=== PATIENT | male | born 1960 | race Caucasian/White ===

== ENCOUNTER 2017-07-16 17:46 | Emergency (ER) | payer MEDICARE, MEDICAID, SELFPAY ==
[2017-07-16 17:55] VITALS: BP 122/66; PULSE 108; RESP 18; TEMP 36.6; O2SAT 96; BMI 31.1
[2017-07-16 17:56] VITALS: BMI 31.1
--- NOTE | 2017-07-16 17:57 | XR_ITS ---
XR chest 2V HISTORY: ITS.REASON: chest pain ORDERING PHYSICIAN: Leela Nieves MD PATIENT AGE: 56 years COMPARISON: 03/11/2016 FINDINGS: The cardiomediastinal silhouette and pulmonary vascularity are within normal limits. The lungs are clear without infiltrates, suspicious nodules, or pleural effusions. Degenerative change thoracic spine. IMPRESSION: No change with no acute finding
[2017-07-16 18:06] LABS: Basophils # 0.1 K/mm3 (0-0.2); Basophils % 0.7 % (0.1-2.0); Eosinophils # 0.4 K/mm3 (0.0-0.4); Eosinophils % 3.3 % (0.1-12.0); Hematocrit 39.5 % (42.0-52.0); Hemoglobin 13.6 g/dL (14.1-18.0); Lymphocytes # 1.9 K/mm3 (0.7-4.5); Lymphocytes % 17.1 K/mm3 (10-50); Mean Corpuscular HGB Conc 34.5 g/dL (31.8-35.4); Mean Corpuscular Hemoglobin 30.4 pg (27.0-31.2); Mean Platelet Volume 7.5 fl (7.4-10.4); Monocytes # 0.6 K/mm3 (0.1-1.0); Monocytes % 5.2 % (1.7-9.3); Neutrophils # 8.1 K/mm3 (1.8-7.8); Neutrophils % 73.8 % (37.0-80.0); Platelet Count 283 K/mm3 (142-424); Red Blood Count 4.49 M/mm3 (4.60-6.20); Red Cell Distribution Width 13.4 % (11.5-17.5)
--- NOTE | 2017-07-16 18:11 | HMH.EDGENADL ---
ED Disposition Clinical Impression: Hypotension Qualifiers: Hypotension type: idiopathic hypotension Qualified Code(s): I95.0 - Idiopathic hypotension Disposition: Home, Self-Care Condition on Discharge: Fair Instructions: DI for Muscle Weakness Additional Instructions: Drink more fluids, take more salt in diet and discuss use of Isorbide with Brainer...return to the ED with any worsening symptoms Referrals: Tali Kulkarni APRN [Primary Care Provider] - Time of Disposition: 19:34 - Critical Care Critical Care Time: No Attestation: On , the high probability of a clinically significant, sudden or life threatening deterioration of the following system(s) required my full and direct attention, intervention and personal management. The time I documented below is in addition to time spent performing reported procedures but includes the following listed in this critical care notation. Medical Decision Making - Medical Records Medical records reviewed: Yes: I reviewed the patient's medical records. Vital Signs: 07/16/17 17:55 Temperature 97.8 F Temperature Source Oral Pulse Rate [Right Brachial] 108 H Respiratory Rate 18 Blood Pressure [Right Arm] 122/66 Blood Pressure Mean [Right Arm] 84 Blood Pressure Source [Right Arm] Automatic Cuff Blood Pressure Position [Right Arm] Sitting 02 Sat by Pulse Oximetry 96 Oxygen Delivery Method Room Air Nasal Cannula - Lab Data Lab results reviewed: Yes: I reviewed the patient's lab results. Lab Results 07/16/17 18:00: WBC 11.0 H, RBC 4.49 L, Hgb 13.6 L, Hct 39.5 L, MCV 88.0, MCH 30.4, MCHC 34.5, RDW 13.4, Plt Count 283, MPV 7.5, Neut % (Auto) 73.8, Lymph % (Auto) 17.1, [place] % (Auto) 5.2, Eos % (Auto) 3.3, Baso % (Auto) 0.7, Neut # (Auto) 8.1 H, Lymph # (Auto) 1.9, [place] # (Auto) 0.6, Eos # (Auto) 0.4, Baso # (Auto) 0.1 07/16/17 18:00: Sodium 139, Potassium 4.0, Chloride 104, Carbon Dioxide 26, Anion Gap 13.0, BUN 33 H, Creatinine 1.54 H, Estimated Creat Clear 79, Estimated GFR 47 L, Est GFR ( Amer) 57 L, Glucose 118 H, Calcium 8.8, Total Bilirubin 0.3, AST 33, ALT 58, Alkaline Phosphatase 103, Total Creatine Kinase 120, CK-MB (CK-2) 0.8, CK-MB (CK-2) Rel Index 0.7, Troponin I < 0.02, Total Protein 7.6, Albumin 3.4, Globulin 4.2 H, Albumin/Globulin Ratio 0.8 L Result diagrams: 07/16/17 18:00 07/16/17 18:00 Orders (Tests/Meds): ORDERS Category Date Time Status XR chest 2V Stat Exams 07/16/17 17:57 Taken 12-lead EKG Request [ECG Request by /Henrik] Stat Y 07/16/17 17:57 Ordered - Radiology Data #1 Image(s): Chest Image Reviewed: Yes I reviewed the patient's radiology results, Yes I reviewed the patient's radiology image Preliminary Findings: Normal/NAD - Abdoulaye Inquiry Pt receiving controlled substance: No Abdoulaye was queried for this patient: No General Adult HPI - General Chief complaint: Weakness Stated complaint: low blood pressure Time Seen by Provider: 07/16/17 18:11 Mode of Arrival: Family Vehicle Limitations: No Limitations Description of Symptoms (Recalled from ER Triage Doc. by RN): pt presents worried about low bp and feeling shaky - History of Present Illness HPI narrative: Pt comes to the ED with complains of light headedness and chest pain all day since he took a new medicine called Isosorbide prescribed to him by Rambo Barker. The chest pain is a sharp pain and he does not have nausea or diaphoresis with it Onset (ago): day(s) Location: chest Radiation: non-radiation Severity: moderate Severity scale (1-10): 5 - Related Data Allergies Allergy/AdvReac Type Severity Reaction Status Date / Time clindamycin [CLINDAMYCIN] Allergy Unknown Unverified 05/15/17 15:09 Penicillins [PENICILLINS] Allergy Unknown Unverified 05/15/17 15:09 [facility] History I have reviewed the patient's past medical history: Yes Medical History: Reports:: Cancer (bladder) - Social History Educational Level: Completed [employer]
--- NOTE | 2017-07-16 18:19 | ED_ITS ---
ED Disposition Clinical Impression: Hypotension Qualifiers: Hypotension type: idiopathic hypotension Qualified Code(s): I95.0 - Idiopathic hypotension Disposition: Home, Self-Care Condition on Discharge: Fair Instructions: DI for Muscle Weakness Additional Instructions: Drink more fluids, take more salt in diet and discuss use of Isorbide with Maintenance And Operations Supervisor...return to the ED with any worsening symptoms Referrals: Tali Kulkarni APRN [Primary Care Provider] - Time of Disposition: 19:34 - Critical Care Critical Care Time: No Attestation: On , the high probability of a clinically significant, sudden or life threatening deterioration of the following system(s) required my full and direct attention, intervention and personal management. The time I documented below is in addition to time spent performing reported procedures but includes the following listed in this critical care notation. Medical Decision Making - Medical Records Medical records reviewed: Yes: I reviewed the patient's medical records. Vital Signs: 07/16/17 17:55 Temperature 97.8 F Temperature Source Oral Pulse Rate [Right Brachial] 108 H Respiratory Rate 18 Blood Pressure [Right Arm] 122/66 Blood Pressure Mean [Right Arm] 84 Blood Pressure Source [Right Arm] Automatic Cuff Blood Pressure Position [Right Arm] Sitting 02 Sat by Pulse Oximetry 96 Oxygen Delivery Method Room Air Nasal Cannula - Lab Data Lab results reviewed: Yes: I reviewed the patient's lab results. Lab Results 07/16/17 18:00: WBC 11.0 H, RBC 4.49 L, Hgb 13.6 L, Hct 39.5 L, MCV 88.0, MCH 30.4, MCHC 34.5, RDW 13.4, Plt Count 283, MPV 7.5, Neut % (Auto) 73.8, Lymph % ( Auto) 17.1, [place] % (Auto) 5.2, Eos % (Auto) 3.3, Baso % (Auto) 0.7, Neut # (Auto ) 8.1 H, Lymph # (Auto) 1.9, [place] # (Auto) 0.6, Eos # (Auto) 0.4, Baso # (Auto) 0.1 07/16/17 18:00: Sodium 139, Potassium 4.0, Chloride 104, Carbon Dioxide 26, Anion Gap 13.0, BUN 33 H, Creatinine 1.54 H, Estimated Creat Clear 79, Estimated GFR 47 L, Est GFR ( Amer) 57 L, Glucose 118 H, Calcium 8.8, Total Bilirubin 0.3, AST 33, ALT 58, Alkaline Phosphatase 103, Total Creatine Kinase 120, CK-MB (CK-2) 0.8, CK-MB (CK-2) Rel Index 0.7, Troponin I < 0.02, Total Protein 7.6, Albumin 3.4, Globulin 4.2 H, Albumin/Globulin Ratio 0.8 L Result diagrams: 07/16/17 18:00 07/16/17 18:00 Orders (Tests/Meds): ORDERS Category Date Time Status XR chest 2V Stat Exams 07/16/17 17:57 Taken 12-lead EKG Request [ECG Request by /Henrik] Stat Y 07/16/17 17:57 Ordered - Radiology Data #1 Image(s): Chest Image Reviewed: Yes I reviewed the patient's radiology results, Yes I reviewed the patient's radiology image Preliminary Findings: Normal/NAD - Abdoulaye Inquiry Pt receiving controlled substance: No Abdoulaye was queried for this patient: No General Adult HPI - General Chief complaint: Weakness Stated complaint: low blood pressure Time Seen by Provider: 07/16/17 18:11 Mode of Arrival: Family Vehicle Limitations: No Limitations Description of Symptoms (Recalled from ER Triage Doc. by RN): pt presents worried about low bp and feeling shaky - History of Present Illness HPI narrative: Pt comes to the ED with complains of light headedness and chest pain all day since he took a new medicine called Isosorbide prescribed to him by Rambo Barker. The chest pain is a sharp pain and he does not have n
[2017-07-16 18:36] LABS: Alanine Aminotransferase 58 U/L (12-78); Albumin Level 3.4 gm/dL (3.4-5.0); Albumin/Globulin Ratio 0.8 (1.1-1.8); Alkaline Phosphatase 103 U/L (46-116); Aspartate Amino Transferase 33 U/L (15-37); Bilirubin,Total 0.3 mg/dL (0.2-1.0); Blood Urea Nitrogen 33 mg/dL (7-18); CKMB Relative Index 0.7 U/L (0-4.0); Calcium 8.8 mg/dL (8.5-10.1); Carbon Dioxide 26 mmol/L (21.0-32.0); Chloride 104 mmol/L (98-107); Creatine Kinase 120 U/L (39-308); Creatine Kinase MB 0.8 mg/ml (0.0-3.6); Creatinine Clearance Estimated 79 mL/min (0-300); Creatinine,Serum 1.54 mg/dL (0.70-1.30); Estimated Glomerular Filt Rate 47 ml/min (>60); GFR (African American) 57 ML/MIN (>60); Globulin 4.2 gm/dl (1.3-3.2); Glucose 118 mg/dL (74-106); Sodium 139 mmol/L (136-145); Total Protein,Serum 7.6 gm/dL (6.4-8.2); Troponin I < 0.02 ng/ml (0.00-0.06)
[2017-07-16 19:39] VITALS: BP 110/70; PULSE 101; RESP 16; TEMP 36.6; O2SAT 96
== END 2017-07-16 19:45 | disposition home or self-care (01) ==
PROVIDERS: Emergency Provider General Practice; Family Provider Internal Medicine Adolescent Medicine; PCP Nurse Practitioner Family
DX: I95.0 Idiopathic hypotension (principal); Z88.0 Allergy status to penicillin
CPT/HCPCS: 71046; 80053; 82550; 82553; 84484; 85025; 93005; 99282

== ENCOUNTER 2017-08-16 10:34 | Day surgery (SDC) | payer MEDICARE, MEDICAID, SELFPAY ==
[2017-08-16] VITALS (9 sets, daily range): BP systolic 96–143; BP diastolic 65–91; PULSE 60–85; RESP 18–20; TEMP 36.4–36.7; O2SAT 93–99; BMI 32.6
--- NOTE | 2017-08-16 11:41 | P.PN_ITS ---
[facility] Anesthesia Checklist - Patient Identification Patient Identification: Arm Band - Structural Data Admitted From: Home Planned Operative Procedure/s: egd/colonoscopy Consent for Planned Operative Procedure(s) Verified: Yes Verified Documents: Surgical Consent, History and Physical - NPO Status Verified Time NPO: 00:00 - Additional verifications Anesthesia Reactions: No - Airway Assessment C-Spine Mobility Assessed: Yes (mp2) TMJ Mobility Assessed: Yes Dentition: Poor Dentition - Neurological Assessment Level of Consciousness: Awake, Alert - Anesthesia Plan Anesthesia Risk discussed: Yes Anesthesia Plan: Verified ASA Class: III Anesthesia Type: MAC [facility] Anesthesia HX I have reviewed the patient's past medical history: Yes Medical History: Reports:: Coronary Artery Disease, Gastroesophageal Reflux Disease(GERD), Hiatal Hernia, Hypertension, Lung Disease (copd), Myocardial Infarction Denies:: Diabetes Mellitus Type 1, Diabetes Mellitus Type 2, Internal Pacemaker, Seizures Other Medical History: Reports: Other (heart attack) Other Surgeries: Yes: Colonoscopy, Coronary Stent, EGD, Hernia Repair. No: Pacemaker *Family Hx:: Cancer, Hypertension, Diabetes, Heart Attack
--- NOTE | 2017-08-16 12:50 | P.PCN_ITS ---
- Procedure: Date: 08/16/17 Procedure Performed:: Esophagogastroduodenoscopy with biopsy Colonoscopy with polypectomy Indications:: This is a 56-year-old gentleman with a history of complex gastritis and ulcerative duodenitis with intestinal metaplasia noted on gastric biopsies one year. He also had a cluster of hyperplastic-appearing polyps around 17 cm in the colon. Pathology confirmed adenomatous changes and changes consistent with possible serrated adenoma. Plans for repeat colonoscopy in 3-6 months were made ; however, the patient did not report for follow-up. He now returns secondary to running out of stomach medicines . Performing Provider:: Surendra Dela Cruz MD Referring Provider:: Amalia Kulkarni APRN Sedation:: Monitored anesthesia care Procedure:: Informed consent was obtained, the patient was taken to the endoscopy suite. Monitored anesthesia care ensued after he was transferred to the left lateral disposition. The gastroscope was advanced. Mild inflammation was noted within the stomach. Dramatic improvement with regard to inflammatory response noted. No ulcerative changes were seen. The pylorus was intubated. The duodenal mucosa had minimal inflammatory changes. A biopsy antrum was obtained and the gastroscope was carefully removed. Digital rectal exam revealed no significant abnormality. The colonoscope was placed in position. The entire colon was evaluated. Bowel preparation was moderate to poor with large volume irrigation and suctioning used to somewhat improve visualization. Severe colonic spasticity and lack of relaxation made visualization difficult. The patient did have a 1 cm sessile distal transverse colon polyp and an adjacent polyp that were excised by way of snare. A cluster around 35 cm was also noted. Although these did appear hyperplastic, the majority of these were removed secondary to history of serrated adenoma. A similar cluster around 20 cm was also excised by way of snare. Due to the shear number of polyps, complete removal at one setting was not able to be accomplished. The colonoscope was carefully removed and the patient was transferred to recovery in stable condition. Findings:: Dramatic improvement with regard to gastric and duodenal inflammation Bowel preparation moderate to poor Severe spasticity and lack of relaxation Large complex sessile polyp of the distal transverse colon and adjacent polyp Complex cluster of hyperplastic-appearing polyps at 35 cm Complex cluster of hyperplastic-appearing polyps at 20 cm Specimens:: Antral biopsy 1cm complex sessile polyp of the distal transverse colon and adjacent polyp Complex cluster of hyperplastic-appearing polyps at 35 cm Complex cluster of hyperplastic-appearing polyps at 20 cm Recommendations:: Repeat colonoscopy is pending pathology but will likely be between 3-6 months secondary to limited visualization and history of clusters of polyps with pathology-proven adenomatous changes. Complications:: No immediate Estimated blood obtained (mL): 1
--- NOTE | 2017-08-16 13:56 | XR_ITS ---
XR acute abdomen series HISTORY: Abdominal pain following colonoscopy and biopsy ITS.REASON: pain s/p colonoscopy ORDERING PHYSICIAN: Surendra Dela Cruz MD PATIENT AGE: 56 years COMPARISON: 07/16/2017 FINDINGS: Frontal view of the chest shows no acute finding. Upright and supine views of the abdomen show a nonspecific bowel gas pattern. No intestinal obstruction or free air is evident. No acute bony anomalies. Abdominal wall tacks are present in the midabdomen. IMPRESSION: No acute finding
--- NOTE | 2017-08-16 15:05 | PC.NURSE ---
after going to bathroom, patient reports minor pain relief.
== END 2017-08-16 14:30 | disposition home or self-care (01) ==
LOC: OUTP 10:36
PROVIDERS: Family Provider Internal Medicine Adolescent Medicine; PCP Internal Medicine Adolescent Medicine; Visit Provider Surgery
PROC: 0DJ08ZZ Inspection of Upper Intestinal Tract, Via Natural or Artificial Opening Endoscopic (ICD-10-PCS; CPT 43235; principal; 2017-08-16 11:30)
DX: K58.9 Irritable bowel syndrome, unspecified (principal); K63.5 Polyp of colon; Z87.19 Personal history of other diseases of the digestive system
CPT/HCPCS: 43239; 45385; 74021; 88305; J2704

== ENCOUNTER → 2018-04-17 11:29 | Outpatient (CLI) | payer MEDICARE, MEDICAID, SELFPAY ==
[2018-04-17 12:54] LABS: Troponin I < 0.02 ng/ml (0.00-0.06)
[2018-04-17 12:59] LABS: Alanine Aminotransferase 39 U/L (12-78); Albumin Level 3.4 gm/dL (3.4-5.0); Albumin/Globulin Ratio 0.7 (1.1-1.8); Alkaline Phosphatase 111 U/L (46-116); Anion Gap 12.5 mEq/L (5-15); Aspartate Amino Transferase 21 U/L (15-37); Bilirubin,Total 0.5 mg/dL (0.2-1.0); Blood Urea Nitrogen 20 mg/dL (7-18); Calcium 8.6 mg/dL (8.5-10.1); Carbon Dioxide 28 mmol/L (21.0-32.0); Chloride 103 mmol/L (98-107); Creatinine,Serum 0.92 mg/dL (0.70-1.30); Estimated Glomerular Filt Rate 85 ml/min (>60); GFR (African American) 103 ML/MIN (>60); Globulin 4.8 gm/dl (1.3-3.2); Glucose 84 mg/dL (74-106); Potassium 4.5 mmoL/L (3.5-5.1); Sodium 139 mmol/L (136-145); Thyroid Stimulating Hormone 3.51 uIU/ml (0.358-3.740); Total Protein,Serum 8.2 gm/dL (6.4-8.2)
[2018-04-17 14:38] LABS: Basophils # 0.1 K/mm3 (0-0.2); Basophils % 0.8 % (0.1-2.0); Eosinophils # 0.2 K/mm3 (0.0-0.4); Eosinophils % 2.1 % (0.1-12.0); Hematocrit 44.2 % (42.0-52.0); Hemoglobin 13.9 g/dL (14.1-18.0); Lymphocytes # 1.7 K/mm3 (0.7-4.5); Lymphocytes % 20.6 % (10-50); Mean Corpuscular HGB Conc 31.6 g/dL (31.8-35.4); Mean Corpuscular Hemoglobin 29.4 pg (27.0-31.2); Mean Platelet Volume 7.5 fl (7.4-10.4); Monocytes # 0.5 K/mm3 (0.1-1.0); Monocytes % 5.8 % (1.7-9.3); Neutrophils # 5.8 K/mm3 (1.8-7.8); Neutrophils % 70.7 % (37.0-80.0); Platelet Count 307 K/mm3 (142-424); Red Blood Count 4.75 M/mm3 (4.60-6.20); Red Cell Distribution Width 14.1 % (11.5-17.5); White Blood Count 8.2 K/mm3 (4.8-10.8)
== END ==
PROVIDERS: Visit Provider Physician Assistant
DX: I25.10 Atherosclerotic heart disease of native coronary artery without angina pectoris (principal); R07.9 Chest pain, unspecified; Z79.899 Other long term (current) drug therapy; R42 Dizziness and giddiness
CPT/HCPCS: 36415; 80053; 84443; 84484; 85025; 93005

== ENCOUNTER → 2018-04-24 10:15 | Outpatient (CLI) | payer MEDICARE, MEDICAID, SELFPAY ==
--- NOTE | 2018-04-24 10:19 | CI_ITS ---
Cerebrovascular Exam Indications: 780.4 Dizziness and giddiness. IMPRESSIONS 1. The bilateral vertebral arteries are patent with normal antegrade flow. 2. Study suggests less than 20% stenosis involving the right internal carotid artery. 3. Study suggests 20-49% stenosis involving the left internal carotid artery. No change from the study of 04-Aug-2014. History: Memory loss and left-sided weakness. Risk factors: Current tobacco use. Hypertension. Carotid duplex study. Complete study and Doppler flow study including spectral analysis, color and soliz scale imaging. Height: Height: 182.9cm. Height: 72in. Weight: Weight: 112.9kg. Weight: 248.5lb. Body mass index: BMI: 33.8kg/m^2. Body surface area: BSA: 2.43m^2. Location: Vascular laboratory. Patient status: Outpatient. Tables: Arterial flow: + +--------+--------+ Location V sys V ed + +--------+--------+ Right CCA - proximal 158cm/s 29.9cm/s + +--------+--------+ Right CCA - distal 98.2cm/s 19.6cm/s + +--------+--------+ Right ECA 82.5cm/s -------- + +--------+--------+ Right ICA - proximal 67.7cm/s 24.9cm/s + +--------+--------+ Right ICA - mid 78.7cm/s 35.1cm/s + +--------+--------+ Right ICA - distal 66.8cm/s 28.6cm/s + +--------+--------+ Right vertebral 38.1cm/s -------- + +--------+--------+ Left CCA - proximal 93.9cm/s 22.5cm/s + +--------+--------+ Left CCA - distal 80.5cm/s 22.6cm/s + +--------+--------+ Left ECA 96.5cm/s -------- + +--------+--------+ Left ICA - proximal 103cm/s 45.2cm/s + +--------+--------+ Left ICA - mid 109cm/s 38cm/s + +--------+--------+ Left ICA - distal 105cm/s 50.7cm/s + +--------+--------+ Left vertebral 51cm/s -------- + +--------+--------+ Velocity ratios: + + + + + + Right, V sys Right, V ed Left, V sys Left, V ed + + + + + + Max ICA/dist CCA 0.8 1.79 1.35 2.24 + + + + + + (Report amended ) Electronically signed by: Theodore Jacobson [id number]
== END ==
PROVIDERS: PCP Internal Medicine Adolescent Medicine; Visit Provider Physician Assistant
DX: R42 Dizziness and giddiness (principal); I25.10 Atherosclerotic heart disease of native coronary artery without angina pectoris
CPT/HCPCS: 93880

== ENCOUNTER → 2018-06-10 09:11 | Outpatient (CLI) | payer MEDICARE, MEDICAID, SELFPAY ==
[2018-06-10 09:35] LABS: Basophils # 0.1 K/mm3 (0-0.2); Basophils % 0.7 % (0.1-2.0); Eosinophils # 0.3 K/mm3 (0.0-0.4); Hemoglobin 14.1 g/dL (14.1-18.0); Lymphocytes # 1.8 K/mm3 (0.7-4.5); Lymphocytes % 20.1 % (10-50); Mean Corpuscular HGB Conc 32.1 g/dL (31.8-35.4); Mean Corpuscular Hemoglobin 29.2 pg (27.0-31.2); Mean Corpuscular Volume 90.8 fl (80-94); Mean Platelet Volume 6.9 fl (7.4-10.4); Monocytes # 0.5 K/mm3 (0.1-1.0); Monocytes % 6.2 % (1.7-9.3); Neutrophils # 6.1 K/mm3 (1.8-7.8); Neutrophils % 69.9 % (37.0-80.0); Platelet Count 280 K/mm3 (142-424); Red Blood Count 4.85 M/mm3 (4.60-6.20); Red Cell Distribution Width 13.8 % (11.5-17.5); White Blood Count 8.7 K/mm3 (4.8-10.8)
[2018-06-10 10:47] LABS: Alanine Aminotransferase 36 U/L (12-78); Albumin Level 3.4 gm/dL (3.4-5.0); Albumin/Globulin Ratio 0.8 (1.1-1.8); Alkaline Phosphatase 123 U/L (46-116); Anion Gap 13.2 mEq/L (5-15); Aspartate Amino Transferase 24 U/L (15-37); Bilirubin,Total 0.6 mg/dL (0.2-1.0); Blood Urea Nitrogen 17 mg/dL (7-18); Calcium 8.9 mg/dL (8.5-10.1); Carbon Dioxide 28 mmol/L (21.0-32.0); Chloride 105 mmol/L (98-107); Cholesterol 121 mg/dL (140-200); Estimated Glomerular Filt Rate 69 ml/min (>60); Free Thyroxine Index 3.5 ug/dL (5.93-13.13); GFR (African American) 83 ML/MIN (>60); Globulin 4.2 gm/dl (1.3-3.2); Glucose 95 mg/dL (74-106); HDL Cholesterol 40 mg/dL (27-67); LDL Cholesterol 63 mg/dL (0-130); Potassium 4.2 mmoL/L (3.5-5.1); Sodium 142 mmol/L (136-145); T4 (Thyroxine) 10.7 ug/dl (4.7-13.3); Thyroid Stimulating Hormone 2.98 uIU/ml (0.358-3.740); Total Protein,Serum 7.6 gm/dL (6.4-8.2); Triglycerides 90 mg/dL (30-200); Triiodothryronine (T3) Uptake 33 % (31-39); VLDL Cholesterol 18 mg/dL (0-40)
[2018-06-12 13:04] LABS: Vitamin B12 467 pg/mL (232-1245)
[2018-06-12 13:06] LABS: Vitamin D 25 Hydroxy 20.7 ng/mL (30.0-100.0)
== END ==
PROVIDERS: Visit Provider Internal Medicine Adolescent Medicine
DX: I25.10 Atherosclerotic heart disease of native coronary artery without angina pectoris; R42 Dizziness and giddiness; Z87.891 Personal history of nicotine dependence; Z79.899 Other long term (current) drug therapy
CPT/HCPCS: 36415; 80053; 80061; 82607; 82652; 84436; 84443; 84479; 85025

== ENCOUNTER → 2018-06-13 14:05 | Outpatient (CLI) | payer MEDICARE, MEDICAID, SELFPAY ==
--- NOTE | 2018-06-13 14:12 | CT_ITS ---
CT lung screening EXAM: CT LUNG LOW DOSE WO CONTRAST HISTORY: 30 pack-year smoking history asymptomatic lung cancer ITS.REASON: TOBACCO USE ORDERING PHYSICIAN: Brandyn Tristan MD PATIENT AGE: 57 years COMPARISON: 11/07/2015 TECHNIQUE: The exam was performed on a GE Light Speed [address] scanner using 2.90 mGy CTDI. A low dose helical CT CHEST was performed on a multi-detector scanner. All CT scans at the facility use one or more dose reduction, viz: automated exposure control, ma/kV adjustment per patient size (including targeted exams where dose is matched to indication, i.e. head), or iterative reconstruction technique. The LDCT was performed in a facility that meets the criteria for the screening program. Data regarding this exam was submitted to ACR which is an approved registry. The order for this exam indicates that it came as a result of a lung cancer screening counseling shard decision-making visit that included all the elements required of such a visit including smoking cessation. The radiologist interpreting this exam meets the [facility] criteria for the LDCT lung cancer screening program. The exam is reported using the Lung-RADS classification scale and reported to the ACR registry. NOTE: This study was performed for the specific purposes of lung cancer screening and is not an alternative to diagnostic chest CT. RADIATION DOSE: CTDI vol(CT dose Index-volume) = 2.90mG DLP (Dose Length Product) = 113.47 mGcm FINDINGS: Centrilobular and paraseptal emphysema with pulmonary fibrosis 8 mm noncalcified nodule right upper lobe posteriorly axial image #25 unchanged 5 mm nodule right upper lobe anterolaterally image #42 not readily apparent previously. There are calcified nodes in the mediastinum and padmini. Coronary artery calcification and/or stent noted. IMPRESSION: 1. Lung RADS Category: 3, probably benign. There is an 8 mm right upper lobe nodule previously measuring approximate 6 mm. The difference could be related to the slice orientation. There is a new 5 mm nodule in right upper lobe. 6 month follow-up suggested 2. Other findings: Centrilobular and paraseptal emphysema with fibrosis RECOMMENDATIONS: 6 month LDCT follow-up
== END ==
PROVIDERS: PCP Internal Medicine Adolescent Medicine; Visit Provider Internal Medicine Adolescent Medicine
DX: Z12.2 Encounter for screening for malignant neoplasm of respiratory organs (principal); Z87.891 Personal history of nicotine dependence

== ENCOUNTER → 2018-06-25 14:49 | Outpatient (CLI) | payer MEDICARE, MEDICAID, SELFPAY | PROVIDERS: PCP Internal Medicine Adolescent Medicine; Visit Provider Specialist | DX: G47.19 Other hypersomnia (principal); G47.30 Sleep apnea, unspecified; H93.19 Tinnitus, unspecified ear; R06.83 Snoring; R42 Dizziness and giddiness; R51 Headache | CPT/HCPCS: G0399 ==

== ENCOUNTER → 2019-07-09 11:45 | Outpatient (CLI) | payer MEDICARE, OTHER, SELFPAY ==
[2019-07-09 12:24] LABS: Basophils # 0.1 K/mm3 (0-0.2); Basophils % 0.8 % (0.1-2.0); Eosinophils # 0.2 K/mm3 (0.0-0.4); Eosinophils % 1.9 % (0.1-12.0); Hematocrit 41.7 % (42.0-52.0); Hemoglobin 13.3 g/dL (14.1-18.0); Lymphocytes # 1.4 K/mm3 (0.7-4.5); Lymphocytes % 17.9 % (10-50); Mean Corpuscular Hemoglobin 28.4 pg (27.0-31.2); Mean Corpuscular Volume 88.7 fl (80-94); Monocytes # 0.4 K/mm3 (0.1-1.0); Monocytes % 5.2 % (1.7-9.3); Neutrophils # 5.9 K/mm3 (1.8-7.8); Neutrophils % 74.2 % (37.0-80.0); Platelet Count 365 K/mm3 (142-424); Red Cell Distribution Width 13.8 % (11.5-17.5); White Blood Count 7.9 K/mm3 (4.8-10.8)
[2019-07-09 13:50] LABS: Alanine Aminotransferase 50 U/L (21-72); Albumin Level 3.4 g/dL (3.4-5.0); Albumin/Globulin Ratio 0.8 (1.1-1.8); Alkaline Phosphatase 117 U/L (46-116); Anion Gap 11.8 mEq/L (5-15); Aspartate Amino Transferase 33 U/L (15-37); Bilirubin,Total 0.4 mg/dL (0.2-1.0); Blood Urea Nitrogen 15 mg/dL (7-18); Calcium 8.8 mg/dL (8.5-10.1); Carbon Dioxide 28 mmol/L (21.0-32.0); Chloride 107 mmol/L (98-107); Chol/HDL Ratio 3.4 (1-3.5); Cholesterol 142 mg/dL (140-200); Creatinine,Serum 0.95 mg/dL (0.70-1.30); Estimated Glomerular Filt Rate 81 ml/min (>60); GFR (African American) 99 ML/MIN (>60); Globulin 4.2 gm/dl (1.3-3.2); Glucose 90 mg/dL (74-106); HDL Cholesterol 42 mg/dL (27-67); LDL Cholesterol 82 mg/dL (0-130); Potassium 4.8 mmoL/L (3.5-5.1); Sodium 142 mmol/L (137-145); Total Protein,Serum 7.6 g/dL (6.4-8.2); Triglycerides 90 mg/dL (30-200); VLDL Cholesterol 18 mg/dL (0-40)
== END ==
PROVIDERS: Visit Provider Internal Medicine Adolescent Medicine
DX: I25.10 Atherosclerotic heart disease of native coronary artery without angina pectoris (principal)
CPT/HCPCS: 36415; 80053; 80061; 85025

== ENCOUNTER → 2019-07-30 14:59 | Outpatient (CLI) | payer MEDICARE, OTHER, SELFPAY ==
--- NOTE | 2019-07-30 15:08 | CT_ITS ---
PROCEDURE: CT LUNG SCREENING CLINICAL INDICATION: CURRRENT TOBACCO USE Thirty pack-year smoking history, asymptomatic for lung cancer COMPARISON: ABDPELW/O CT ABD PELVIS W/O CONTRAST from 03/11/[address] lung screening from 06/13/2018 TECHNIQUE: The exam was performed on a GE Light Speed [address] scanner using 2.90 mGy CTDI. A low dose helical CT CHEST was performed on a multi-detector scanner. All CT scans at the facility use one or more dose reduction, viz: automated exposure control, ma/kV adjustment per patient size (including targeted exams where dose is matched to indication, i.e. head), or iterative reconstruction technique. The LDCT was performed in a facility that meets the criteria for the screening program. Data regarding this exam was submitted to ACR which is an approved registry. The order for this exam indicates that it came as a result of a lung cancer screening counseling shard decision-making visit that included all the elements required of such a visit including smoking cessation. The radiologist interpreting this exam meets the CMS criteria for the LDCT lung cancer screening program. The exam is reported using the Lung-RADS classification scale and reported to the ACR registry. NOTE: This study was performed for the specific purposes of lung cancer screening and is not an alternative to diagnostic chest CT. RADIATION DOSE: CTDI vol(CT dose Index-volume) = 2.90mG DLP (Dose Length Product) = 107.86 mGcm FINDINGS: COPD with interstitial changes. 3 mm noncalcified nodule right upper lobe anteriorly image 47 series 4. There are scattered areas of scarring. There is a new 8 mm parenchymal opacity in the right apex possibly due to an area of scarring but not readily apparent on the previous exam. OTHER FINDINGS: Coronary artery calcification. There is lobular soft tissue density projecting off the lateral aspect of the left kidney incompletely imaged. Left renal cyst is noted in this region on previous abdomen CT of 03/11/2016. IMPRESSION: Lung rads category 3 probably benign finding regarding new 8 mm parenchymal opacity in the right apex. Recommend six-month diagnostic CT follow-up without and with contrast Dictated by: Theodore Jacobson MD 08/02/2019 10:20 Electronically signed by Theodore Jacobson MD in [place] 08/02/2019 10:20
== END ==
PROVIDERS: PCP Internal Medicine Adolescent Medicine; Visit Provider Internal Medicine Adolescent Medicine
DX: Z87.891 Personal history of nicotine dependence (principal); Z12.2 Encounter for screening for malignant neoplasm of respiratory organs

== ENCOUNTER → 2020-02-25 10:06 | Outpatient (CLI) | payer MEDICARE, OTHER, SELFPAY ==
--- NOTE | 2020-02-25 10:10 | CT_ITS ---
PROCEDURE: CT CHEST WO/W CON CLINCAL INDICATION: LUNG NODULE Follow-up lung nodule COMPARISON: CT ABDPELW/O CT ABD PELVIS W/O CONTRAST from 05/09/2015 CT CTAC CTA-CHEST from 11/07/[address] LUNG SCREENING from 07/30/2019 TECHNIQUE: IV Contrast: 75ml Optiray 350 Axial images obtained with sagittal and coronal reformats. All CT scans at the facility use one or more dose reduction, viz: automated exposure control, ma/kV adjustment per patient size (including targeted exams where dose is matched to indication, i.e. head), or iterative reconstruction technique. FINDINGS: HEART AND MEDIASTINAL STRUCTURES: There is scattered small mediastinal lymph nodes present. The largest node is in the precarinal region on the right measuring 1.6 cm not significantly changed. Coronary artery calcifications are present. LUNGS AND PLEURAL SPACES: There is scarring in the lung apices greater on the right. There is an 8 mm right apical nodule. This may be related to some scarring. The overall size is not significantly changed but the nodule appears slightly more prominent possibly due to the technique.. There are other scattered parenchymal and subpleural opacities. These are better delineated on today's exam probably related to the technique there are changes of COPD with centrilobular emphysema and scattered areas of scarring/fibrosis. There is a 7 mm noncalcified nodule in the right upper lobe medially adjacent to the posterior mediastinum probably unchanged. This is best seen on coronal image number 59 No effusions. No evidence of aortic aneurysm or dissection. No evidence of central pulmonary embolus. BONY STRUCTURES: No acute bony abnormalities apparent. UPPER ABDOMEN: There is a 13 mm hypodensity in the right hepatic lobe posteriorly benign-appearing and not significantly changed from a abdomen CT of 05/09/2015. 7.5 cm left renal cyst is present. 15 mm left-sided hepatic cyst noted. ADDITIONAL FINDINGS: No other significant abnormalities. IMPRESSION: COPD with centrilobular and paraseptal emphysema with some scattered areas of fibrosis. There are numerous small bilateral pulmonary nodules. Some of these appears slightly more prominent compared to the previous exam however, this may be related to technique. There was motion artifact on that exam and it was performed as an LDCT. Probably overall not significantly changed. Suggest continued six-month follow-up diagnostic chest CT without and with contrast for confirmation. Dictated by: Theodore Jacobson MD 03/06/2020 08:24 Theodore Jacobson MD in [place] 03/06/2020 08:24
[2020-02-25 10:49] LABS: Blood Urea Nitrogen 16 mg/dl (9-20); Estimated Glomerular Filt Rate 76 ml/min (>60); GFR (African American) 93 ML/MIN (>60)
== END ==
PROVIDERS: PCP Internal Medicine Adolescent Medicine; Visit Provider Internal Medicine Adolescent Medicine
DX: R91.1 Solitary pulmonary nodule (principal)
CPT/HCPCS: 36415; 71270; 82565; 84520; Q9967

== ENCOUNTER → 2020-09-06 12:30 | Outpatient (CLI) | payer MEDICARE, OTHER, SELFPAY ==
[2020-09-06 12:51] LABS: Basophils # 0.1 K/mm3 (0-0.2); Basophils % 0.7 % (0.1-2.0); Eosinophils # 0.2 K/mm3 (0.0-0.4); Eosinophils % 2.4 % (0.1-12.0); Hemoglobin 12.8 g/dL (14.1-18.0); Lymphocytes # 1.9 K/mm3 (0.7-4.5); Lymphocytes % 20.1 % (10-50); Mean Corpuscular HGB Conc 32.9 g/dL (31.8-35.4); Mean Corpuscular Hemoglobin 28.2 pg (27.0-31.2); Mean Corpuscular Volume 85.7 fl (80-94); Mean Platelet Volume 7.8 fl (7.4-10.4); Monocytes # 0.5 K/mm3 (0.1-1.0); Monocytes % 5.6 % (1.7-9.3); Neutrophils # 6.6 K/mm3 (1.8-7.8); Neutrophils % 71.2 % (37.0-80.0); Platelet Count 271 K/mm3 (142-424); Red Blood Count 4.55 M/mm3 (4.60-6.20); Red Cell Distribution Width 14.8 % (11.5-17.5); White Blood Count 9.2 K/mm3 (4.8-10.8)
[2020-09-06 13:29] LABS: Chloride 107 mmol/L (98-107); Potassium 4.7 mmoL/L (3.5-5.1); Sodium 140 mmol/L (136-145)
[2020-09-06 13:31] LABS: Alanine Aminotransferase 24 U/L (12-78); Alkaline Phosphatase 121 U/L (38-126); Aspartate Amino Transferase 33 U/L (17-59); Bilirubin,Total 0.7 mg/dl (0.2-1.3); Blood Urea Nitrogen 15 mg/dl (9-20); Estimated Glomerular Filt Rate 76 ml/min (>60); GFR (African American) 93 ML/MIN (>60)
[2020-09-06 13:32] LABS: Albumin/Globulin Ratio 1.2 (1.1-1.8); Anion Gap 7.7 mEq/L (5-15); Calcium 9.1 mg/dl (8.4-10.2); Carbon Dioxide 30 mmol/L (22.0-30.0); Chol/HDL Ratio 2.9 (1-3.5); Cholesterol 112 mg/dl (140-200); Globulin 3.4 g/dL (1.3-3.2); Glucose 88 mg/dl (74-100); HDL Cholesterol 39 mg/dl (40-60); Total Protein,Serum 7.4 g/dl (6.3-8.2); Triglycerides 54 mg/dl (30-150); VLDL Cholesterol 11 mg/dL (0-40)
[2020-09-06 13:41] LABS: NT Pro Brain Natriuretic Pep. 165 pg/mL (0-125)
[2020-09-06 13:43] LABS: Direct LDL Cholesterol 54.49 mg/dL (100-129)
== END ==
PROVIDERS: Visit Provider Internal Medicine Adolescent Medicine
DX: I25.10 Atherosclerotic heart disease of native coronary artery without angina pectoris (principal); I50.9 Heart failure, unspecified
CPT/HCPCS: 36415; 80053; 80061; 83880; 85025

== ENCOUNTER → 2020-09-08 07:51 | Outpatient (CLI) | payer MEDICARE, OTHER, SELFPAY ==
--- NOTE | 2020-09-08 | CA_ITS ---
APPROVED REPORT EXAM: Comprehensive 2D, Doppler, and color-flow Echocardiogram [employer] Architect: Celi Garay CRT Ht: 6 ft 0 in Wt: 257lbs BSA: 2.37 BP: 115/64 mmHg Indications: CAD, Hyperlipidemia, Hypertension/HDD, GERD, Bladder CA, Stents, smoker 2D Dimensions LVOT 2.04 cm (M/F) 1.5-2.5 LA Volume 60.20 mL LA Volume Index 25.40 mL/m2 (M/F) 16-34 M-Mode Dimensions RVDd 3.76 cm (0.9-2.6) LA Diam 3.97 cm (1.9-4.0) LVDd 4.52 cm (3.5-5.7) Ao Diam 4.85 cm (2.0-3.7) LVDs 3.30 cm (3.5-5.7) IVSd 1.78 cm (0.6-1.1) PWd 0.95 cm (0.6-1.1) EF (Teich) 52.80% FS 27.00% EDV (Teich) 93.40 mL TAPSE 2.26 (<1.7) ESV (Teich) 44.10 mL LV Diastology MED E' 6.30 (< 7 cm/sec) MED A' 10.70 cm/s LAT E' 8.10 (<10 cm/sec) LAT A' 12.90 cm/s Aortic Valve AI PHT 331.00 ms AO Peak GR. 4.80 mmHg Pulmonary Valve PV Peak Velocity 65.00 (50-150 cm/s) Tricuspid Valve TR P. Velocity 228.00 cm/s RAP Estimate 10.00 mmHg RVSP 30.90 mmHg Left Ventricle Left atrium is mildly enlarged, left ventricle is normal size, mild concentric left ventricular hypertrophy, visually estimated ejection fraction 55% with no obvious regional wall motion abnormality, grade 1 diastolic dysfunction seen without tissue Doppler evidence of raise left atrial pressure. Right Ventricle Right atrium and right ventricle are mildly enlarged with normal contractility. Aortic Valve Aortic valve is minimally thickened and fibrosed. There is no aortic stenosis or aortic insufficiency. Mitral Valve Mitral valve grossly normal, there is trace mitral regurgitation. Tricuspid Valve Tricuspid valve grossly normal, there is trace tricuspid regurgitation, tricuspid regurgitation jet velocity is inadequate for calculation of the right ventricular systolic pressure. Pulmonic Valve Pulmonic valve is poorly visualized. Great Vessels Aortic root is normal size. Pericardium No significant pericardial effusion noted. Conclusion 1. Mildly enlarged left atrium, normal left ventricular size, mild concentric left ventricular hypertrophy, visually estimated ejection fraction 55% with no regional wall motion abnormality, grade 1 diastolic dysfunction seen without tissue Doppler evidence of raise left atrial pressure. 2. Mildly enlarged right ventricle with normal contractility. 3. Trace mitral and tricuspid regurgitation. 4. No significant pericardial effusion noted. Inferior vena cava is not well visualized. Electronically signed by : Olegario Stovall, 09/09/2020 10:28:11
== END ==
PROVIDERS: PCP Internal Medicine Adolescent Medicine; Visit Provider Internal Medicine Adolescent Medicine
DX: I50.9 Heart failure, unspecified (principal); I25.10 Atherosclerotic heart disease of native coronary artery without angina pectoris
CPT/HCPCS: 93306

== ENCOUNTER → 2020-10-05 17:06 | Outpatient (CLI) | payer MEDICARE, OTHER, SELFPAY ==
[2020-10-05 17:48] LABS: Basophils # 0.1 K/mm3 (0-0.2); Basophils % 0.9 % (0.1-2.0); Eosinophils # 0.2 K/mm3 (0.0-0.4); Eosinophils % 2.7 % (0.1-12.0); Hemoglobin 13.1 g/dL (14.1-18.0); Lymphocytes % 24.2 % (10-50); Mean Corpuscular HGB Conc 31.9 g/dL (31.8-35.4); Mean Corpuscular Hemoglobin 28.5 pg (27.0-31.2); Mean Corpuscular Volume 89.1 fl (80-94); Mean Platelet Volume 7.4 fl (7.4-10.4); Monocytes # 0.5 K/mm3 (0.1-1.0); Monocytes % 5.6 % (1.7-9.3); Neutrophils # 5.5 K/mm3 (1.8-7.8); Neutrophils % 66.7 % (37.0-80.0); Platelet Count 255 K/mm3 (142-424); Red Blood Count 4.61 M/mm3 (4.60-6.20); Red Cell Distribution Width 14.6 % (11.5-17.5); White Blood Count 8.3 K/mm3 (4.8-10.8)
[2020-10-05 18:22] LABS: Chloride 101 mmol/L (98-107)
[2020-10-05 18:23] LABS: Potassium 4.8 mmoL/L (3.5-5.1); Sodium 137 mmol/L (136-145)
[2020-10-05 18:26] LABS: Anion Gap 9.8 mEq/L (5-15); Blood Urea Nitrogen 21 mg/dl (9-20); Calcium 9.4 mg/dl (8.4-10.2); Carbon Dioxide 31 mmol/L (22.0-30.0); Estimated Glomerular Filt Rate 62 ml/min (>60); GFR (African American) 75 ML/MIN (>60); Glucose 114 mg/dl (74-100)
== END ==
PROVIDERS: Visit Provider Nurse Practitioner Family
DX: R06.00 Dyspnea, unspecified; R94.31 Abnormal electrocardiogram [ECG] [EKG]; R60.9 Edema, unspecified; I10 Essential (primary) hypertension; I25.118 Atherosclerotic heart disease of native coronary artery with other forms of angina pectoris; I27.20 Pulmonary hypertension, unspecified; J44.9 Chronic obstructive pulmonary disease, unspecified; E78.5 Hyperlipidemia, unspecified; F17.200 Nicotine dependence, unspecified, uncomplicated; Z01.818 Encounter for other preprocedural examination; Z11.52 Encounter for screening for COVID-19
CPT/HCPCS: 36415; 80048; 85025; U0003

== ENCOUNTER 2020-10-07 08:38 | Day surgery (SDC) | payer MEDICARE, OTHER, SELFPAY ==
[2020-10-07] VITALS (13 sets, daily range): BP systolic 85–162; BP diastolic 56–83; PULSE 56–72; RESP 16–18; TEMP 36.8; O2SAT 87–95; BMI 38.0
--- NOTE | 2020-10-07 07:24 | IR_ITS ---
APPROVED REPORT Patient Location: Outpatient Site Leader: LANI Perez RT (R) PROCEDURES Right heart catheterization Left heart catheterization Left ventriculogram Selective coronary angiogram INDICATION Previous inferior myocardial infarction, Biventricular congestive heart failure, Angina pectoris class III-IV Informed consent was obtained prior to the procedure. COMPLICATIONS None Estimated Blood Loss: less than 10ml TECHNIQUE One percent lidocaine was used to anesthetize the right anterior aspect of the right wrist. The right radial artery was accessed via the Seldinger technique and a 6 [place] hydrophilic sheath was placed in the right radial artery. Following this one percent lidocaine was used to anesthetize the right anterior aspect of the right neck. The right internal jugular vein was accessed via the Seldinger technique and a 7 [place] sheath was placed in the right internal jugular vein. Following this an arterial cocktail was administered using 5000U heparin, 2.5 mg verapamil, 1mg Lidocaine and 800mcg nitroglycerin into the right radial sheath. A trap catheter was used to perform left heart catheterization left ventriculogram and selective coronary angiography while a Newnan-Quirino catheter was used to perform right heart catheterization. Saturations were obtained in the pulmonary artery and right atrium. At the end of the procedure the arterial sheath was removed good hemostasis was achieved using Traclet band. Patient was transferred to the postop holding area in stable condition for venous sheath removal. ANGIOGRAPHIC RESULTS The left main artery Normal The left anterior descending artery Has a stent in the proximal segment which is widely patent with no angiographic evidence of in-stent restenosis however significantly undersized by at least 1.5 millimeters in diameter. Nevertheless there still appears to be appropriate flow down the LAD The circumflex artery Is a nondominant vessel. The second obtuse marginal artery is occluded and fills scantly via left to left collaterals The right coronary artery Is a dominant vessel and has a stent in the mid segment which is widely patent free of in-stent restenosis however the stent is significantly undersized by at least 1.5 to 2 mm in diameter The [place] ventriculogram reveals Normal 65% The left ventricular end-diastolic pressure 30 mmHg Right atrial pressure 15 mmHg Pulmonary artery pressure 40/25 mmHg Pulmonary occlusion pressure 25 mmHg Right atrial saturation 74% Pulmonary artery saturation 74% IMPRESSION Patent stents in the proximal LAD and mid dominant right coronary artery which do not have in-stent restenosis however both stents are significantly undersized Moderate pulmonary hypertension secondary to left-sided diastolic dysfunction Normal ejection fraction PLAN 1. At this point. Both stents in the proximal LAD and mid dominant right coronary are undersized however have no evidence of in-stent restenosis. Given patient has diastolic dysfunction I believe that should be treated prior to proceeding with further ischemic work-up. In the setting of elevated LVEDP/decompensated heart failure and FFR test is not accurate and cannot appropriately assess ischemic heart disease. Patient should be treated for diastolic dysfunction with diuretics. If his symptoms significantly improve and the angina resolves then the presumed diagnosis would be diastolic dysfunction. If after diuresis his symptoms persist, he should be brought back to the [facility] in a euvolemic state and then have the LAD and right coronary artery subjected to FFR interrogation. Given the occluded circumflex artery and undersized LAD and
[2020-10-07 14:18] LABS: CATHL Arterial O2 SAT 74.1 % (90-100); CATHL Venous O2 SAT 74.5 % (75-80)
== END 2020-10-07 13:31 | disposition home or self-care (01) ==
LOC: CATHLAB 08:41
PROVIDERS: PCP Internal Medicine Adolescent Medicine; Visit Provider Internal Medicine
DX: I27.20 Pulmonary hypertension, unspecified (principal); E78.5 Hyperlipidemia, unspecified; I25.118 Atherosclerotic heart disease of native coronary artery with other forms of angina pectoris; I50.82 Biventricular heart failure; I11.0 Hypertensive heart disease with heart failure; J44.9 Chronic obstructive pulmonary disease, unspecified; R06.00 Dyspnea, unspecified; R60.9 Edema, unspecified; R94.31 Abnormal electrocardiogram [ECG] [EKG]; F17.210 Nicotine dependence, cigarettes, uncomplicated; I25.2 Old myocardial infarction
CPT/HCPCS: 82810; 93460; 99152; C1725; C1769; C1894; J1644; Q9967

== ENCOUNTER → 2020-10-28 10:32 | Outpatient (CLI) | payer MEDICARE, OTHER, SELFPAY ==
[2020-10-28 11:17] LABS: Anion Gap 9.5 mEq/L (5-15); Blood Urea Nitrogen 21 mg/dl (9-20); Calcium 9.3 mg/dl (8.4-10.2); Carbon Dioxide 33 mmol/L (22.0-30.0); Chloride 103 mmol/L (98-107); Estimated Glomerular Filt Rate 57 ml/min (>60); GFR (African American) 68 ML/MIN (>60); Glucose 113 mg/dl (74-100); Potassium 4.5 mmoL/L (3.5-5.1); Sodium 141 mmol/L (136-145)
== END ==
PROVIDERS: PCP Internal Medicine Adolescent Medicine; Visit Provider Nurse Practitioner Family
DX: G47.33 Obstructive sleep apnea (adult) (pediatric) (principal); R06.00 Dyspnea, unspecified; R40.0 Somnolence
CPT/HCPCS: 36415; 80048; G0399

== ENCOUNTER → 2021-04-27 07:54 | Outpatient (CLI) | payer MEDICARE, OTHER, SELFPAY | PROVIDERS: Visit Provider Urology | DX: C67.9 Malignant neoplasm of bladder, unspecified (principal); Z01.812 Encounter for preprocedural laboratory examination; Z20.822 Contact with and (suspected) exposure to COVID-19 | CPT/HCPCS: C9803; U0003; U0005 ==

== ENCOUNTER 2021-04-29 07:19 | Day surgery (SDC) | payer MEDICARE, OTHER, SELFPAY ==
[2021-04-25 12:49] VITALS: BMI 35.2
[2021-04-29] VITALS (9 sets, daily range): BP systolic 121–155; BP diastolic 71–89; PULSE 67–81; RESP 16–20; TEMP 36.1–36.7; O2SAT 91–98
[2021-04-29 08:08] LABS: Chloride 101 mmol/L (98-107); Potassium 3.5 mmoL/L (3.5-5.1); Sodium 140 mmol/L (136-145)
[2021-04-29 08:11] LABS: Basophils # 0.1 K/mm3 (0-0.2); Basophils % 0.8 % (0.1-2.0); Blood Urea Nitrogen 23 mg/dl (9-20); Creatinine Clearance Estimated 119 mL/min (50-200); Eosinophils # 0.2 K/mm3 (0.0-0.4); Estimated Glomerular Filt Rate 68 ml/min (>60); GFR (African American) 83 ML/MIN (>60); Hematocrit 43.1 % (42.0-52.0); Hemoglobin 14.4 g/dL (14.1-18.0); Lymphocytes # 1.7 K/mm3 (0.7-4.5); Lymphocytes % 18.2 % (10-50); Mean Corpuscular HGB Conc 33.4 g/dL (31.8-35.4); Mean Corpuscular Hemoglobin 30.2 pg (27.0-31.2); Mean Corpuscular Volume 90.3 fl (80-94); Mean Platelet Volume 8.2 fl (7.4-10.4); Monocytes # 0.5 K/mm3 (0.1-1.0); Monocytes % 5.1 % (1.7-9.3); Neutrophils % 73.8 % (37.0-80.0); Platelet Count 331 K/mm3 (142-424); Red Blood Count 4.77 M/mm3 (4.60-6.20); Red Cell Distribution Width 14.4 % (11.5-17.5); White Blood Count 9.4 K/mm3 (4.8-10.8)
[2021-04-29 08:12] LABS: Anion Gap 13.5 mEq/L (5-15); Calcium 9.6 mg/dl (8.4-10.2); Carbon Dioxide 29 mmol/L (22.0-30.0); Glucose 103 mg/dl (74-100)
[2021-04-29 09:35] LABS: Prostate Specific Ag, Diagnost 1.83 ng/ml (0.0-4.0)
--- NOTE | 2021-04-29 10:24 | P.PN_ITS ---
[facility] Anesthesia Checklist - Patient Identification Patient Identification: Arm Band - Structural Data Admitted From: Home Planned Operative Procedure/s: Cystoscopy, Excision of Scrotal Lesion Consent for Planned Operative Procedure(s) Verified: Yes Verified Documents: Surgical Consent, History and Physical - NPO Status Verified Time NPO: 00:00 - Additional verifications Anesthesia Reactions: No Hx Blood Transfusions: No Blood Transfusion Reaction: No - Airway Assessment C-Spine Mobility Assessed: Yes (mp2) TMJ Mobility Assessed: Yes Dentition: Poor Dentition - Neurological Assessment Level of Consciousness: Awake, Alert - Anesthesia Plan Anesthesia Risk discussed: Yes Anesthesia Plan: Verified ASA Class: III Anesthesia Type: General [facility] History I have reviewed the patient's past medical history: Yes Medical History: Reports:: Asthma, Cancer, Congestive Heart Failure, Chronic Obstructive Pulmonary Disease (COPD), Coronary Artery Disease, Gastroesophageal Reflux Disease(GERD), Hiatal Hernia, Hyperlipidemia, Hypertension, Lung Disease, Myocardial Infarction Denies:: Diabetes Mellitus Type 1, Diabetes Mellitus Type 2, Internal Pacemaker, MRSA, Seizures *Have you ever received a pneumonia vaccine?: Yes *Have you received a flu vaccine this season?: Yes Other Medical History: Reports: Other. Denies: Blood Transfusion Reaction Anesthesia experience/problems:: nac Other Surgeries: Yes: Cancer Surgery, Cardiac Catheterization, Colonoscopy, Coronary Stent, EGD, Hernia Repair, Other. No: Pacemaker Amputation: No Fractures: Yes - *Social History Last grade of school completed: High school graduate Smoking Status: Current every day smoker Tobacco Type: cigarettes # Packs/Day (cigarettes): 1 #Yrs smoked (if former smoker): 45 Alcohol Intake: never Alcohol Intake Frequency:: other Substance Use Type: denies use *Occupational Status:: disabled Housing: house Household Members: spouse *Travel in the last 8 weeks: None Family Hx:: Cancer, Hypertension, Diabetes, Heart Attack
--- NOTE | 2021-04-29 10:53 | HMH.ANESI ---
[facility] Anesthesia Record Part I Intake, IV Amount: 900 Estimated blood loss (mL): 0 Urine output (mL): 0 Blood Pressure: 155/89 SaO2: 91 Pulse Rate: 76 Respiratory Rate: 16 Temperature: 98 F Patient is:: Drowsy, Stable Stable to PACU at:: 10:20
--- NOTE | 2021-04-29 10:54 | HMH.ANESII ---
[facility] Anesthesia Record Part II Discharge Time: 10:50 Destination: Surgical Day Care (OP Surgery) PACU nurse assessment reviewed?: Yes Patient Condition:: Good Anesthesia Complications:: None Swallowing reflex intact?: Yes Cyanosis?: No Blood Pressure: 147/86 Pulse Rate: 69 Temperature: 98 F Mental Status: Alert & Oriented Pain level:: 0 Nausea and/or vomitting:: None Intake, IV Amount: 0
--- NOTE | 2021-04-29 13:43 | P.OP_ITS ---
Date of procedure: 04/29/21 Pre-op Diagnosis:: History of bladder cancer, right scrotal wall skin lesion Post-op Diagnosis:: Same Procedure performed:: Cystoscopy, excision of 2 cm skin lesion Surgeon:: Gee Gray MD [employer] OPERATOR:: Aron Morales Anesthesia: LMA Estimated blood loss (mL): 2 Clinical Note:: 60-year-old white male with history of bladder cancer presents after a 5-year absence for surveillance cystoscopy. He also has a right-sided scrotal wall lesion that he would like removed. Operative findings:: Bladder showed no evidence of recurrent bladder cancer. Does have a large friable median lobe of the prostate. 2 cm scrotal lesion was removed without problem. Operative note:: Patient taken to the operating room after informed consent was obtained. Placed on the operating table in the supine position and general anesthesia administered. Preoperative antibiotics and sequential compression devices placed. He was then placed into the dorsal lithotomy position and prepped and draped in the standard surgical fashion. The 22 cystoscope passed into the urethra in the past into the bladder without difficulty. The bladder was examined in a systematic fashion with the 30 and 70 degree lenses. There is no evidence of recurrent bladder tumors. Small trabeculation was present and he had a enlarged median lobe that was friable. Ureteral orifices in their normal anatomic position with clear efflux of urine. Scope removed and we turned our attention to the right scrotal wall lesion. Kept the patient in the dorsolithotomy position and local anesthetic was placed into the skin underneath the lesion. It had a very narrow neck attaching it to the skin. Elliptical incision was made at the base of the lesion and tenotomy scissors were used to excise the lesion. Hemostasis achieved and the skin edges were undermined. Two 3-0 chromic's were placed in a simple interrupted fashion. Compression dressing applied. Patient tolerated procedure well. Lesion was sent off to pathology. Condition: stable Disposition: PACU Specimens:: Scrotal wall lesion Complications:: None
== END 2021-04-29 11:25 | disposition home or self-care (01) ==
LOC: OR 07:20
PROVIDERS: PCP Internal Medicine Adolescent Medicine; Visit Provider Urology
PROC: 0TJB8ZZ Inspection of Bladder, Via Natural or Artificial Opening Endoscopic (ICD-10-PCS; CPT 52000; principal; 2021-04-29 09:30)
DX: Z85.51 Personal history of malignant neoplasm of bladder (principal); R31.9 Hematuria, unspecified; N50.89 Other specified disorders of the male genital organs; J45.909 Unspecified asthma, uncomplicated; J44.9 Chronic obstructive pulmonary disease, unspecified; I25.10 Atherosclerotic heart disease of native coronary artery without angina pectoris; K21.9 Gastro-esophageal reflux disease without esophagitis; E78.5 Hyperlipidemia, unspecified; I10 Essential (primary) hypertension; I25.2 Old myocardial infarction; Z72.0 Tobacco use; I50.9 Heart failure, unspecified; Z85.9 Personal history of malignant neoplasm, unspecified
CPT/HCPCS: 52000; 80048; 84153; 85025; 88305; 96374; J2405

== ENCOUNTER 2021-05-16 22:51 | Observation (INO) | payer MEDICARE, OTHER, SELFPAY ==
--- NOTE | 2021-05-16 22:50 | ECG_ITS ---
APPROVED REPORT Exam: Resting ECG HR:82 bpm ECG Measurements Heart Rate 82 AXES ND 158 P 36 QRSd 84 QRS 25 QT 376 T 46 QTc 439 Conclusion Normal sinus rhythm Normal ECG Electronically signed by : Brandyn Tristan MD 05/17/2021 21:03:39
[2021-05-16 22:51] VITALS: BP 171/95; PULSE 84; RESP 16; TEMP 37; O2SAT 95; BMI 35.2
--- NOTE | 2021-05-16 22:58 | XR_ITS ---
PROCEDURE INFORMATION: Exam: XR Chest Exam date and time: 05/16/2021 10:58 PM Age: 60 years old Clinical indication: Sternal or substernal pain; Prior surgery; Patient HX: States chest pain starting around 2230. HX copd, cardiac stents, smoker & HTN TECHNIQUE: Imaging protocol: XR of the chest. Views: 1 view. COMPARISON: CT CHEST WO/W CON 02/25/2020 10:57 AM FINDINGS: Lungs: Subtle interstitial haziness could reflect interstitial pneumonia. No consolidation. Pleural spaces: Unremarkable. No pleural effusion. No pneumothorax. Heart/Mediastinum: Unremarkable. No cardiomegaly. Bones/joints: Unremarkable. IMPRESSION: Subtle interstitial haziness could reflect interstitial pneumonia.
[2021-05-16 23:00] VITALS: PULSE 77; RESP 21; O2SAT 97
[2021-05-16 23:01] VITALS: BP 111/68; PULSE 76; RESP 20; O2SAT 97
[2021-05-16 23:07] LABS: Basophils # 0.1 K/mm3 (0-0.2); Basophils % 0.7 % (0.1-2.0); Eosinophils # 0.2 K/mm3 (0.0-0.4); Eosinophils % 1.7 % (0.1-12.0); Hematocrit 42.5 % (42.0-52.0); Hemoglobin 14.1 g/dL (14.1-18.0); Lymphocytes % 19.3 % (10-50); Mean Corpuscular HGB Conc 33.1 g/dL (31.8-35.4); Mean Corpuscular Hemoglobin 30.1 pg (27.0-31.2); Mean Corpuscular Volume 90.8 fl (80-94); Mean Platelet Volume 7.5 fl (7.4-10.4); Monocytes # 0.6 K/mm3 (0.1-1.0); Monocytes % 6.1 % (1.7-9.3); Neutrophils # 7.5 K/mm3 (1.8-7.8); Neutrophils % 72.3 % (37.0-80.0); Platelet Count 312 K/mm3 (142-424); Red Blood Count 4.69 M/mm3 (4.60-6.20); White Blood Count 10.4 K/mm3 (4.8-10.8)
[2021-05-16 23:15] VITALS: PULSE 79; RESP 12; O2SAT 96
--- NOTE | 2021-05-16 23:17 | HMH.EDCP ---
ED Disposition Clinical Impression: Unstable angina pectoris, Tobacco dependence syndrome, Elevated left ventricular end-diastolic pressure (LVEDP), Obesity (BMI 30-39.9) CAD (coronary artery disease) Qualifiers: Coronary Disease-Associated Artery/Lesion type: [place] artery [place] vs. transplanted heart: [place] heart Associated angina: with unstable angina Qualified Code(s): I25.110 - Atherosclerotic heart disease of [place] coronary artery with unstable angina pectoris Disposition: Admitted As Inpatient Condition on Discharge: Good Referrals: Brandyn Tristan MD [Primary Care Provider] - - Critical Care Critical Care Time: No Attestation: On 05/16/21, the high probability of a clinically significant, sudden or life threatening deterioration of the following system(s) required my full and direct attention, intervention and personal management. The time I documented below is in addition to time spent performing reported procedures but includes the following listed in this critical care notation. Medical Decision Making - Medical Records Medical records reviewed: Yes: I reviewed the patient's medical records. - Abdoulaye Inquiry Pt receiving controlled substance: No Vital Signs: 05/16/21 22:51 Temperature 98.6 F Temperature Source Oral Pulse Rate [Right] 84 Respiratory Rate 16 Blood Pressure [Right Arm] 171/95 H Blood Pressure Mean [Right Arm] 120 Blood Pressure Source [Right Arm] Automatic Cuff Blood Pressure Position [Right Arm] Sitting 02 Sat by Pulse Oximetry 95 Oxygen Delivery Method Room Air - Lab Data Lab results reviewed: Yes: I reviewed the patient's lab results. Lab Results 05/16/21 22:55: WBC 10.4, RBC 4.69, Hgb 14.1, Hct 42.5, MCV 90.8, MCH 30.1, MCHC 33.1, RDW 14.0, Plt Count 312, MPV 7.5, Neut % (Auto) 72.3, Lymph % (Auto) 19.3, Reynolds % (Auto) 6.1, Eos % (Auto) 1.7, Baso % (Auto) 0.7, Neut # (Auto) 7.5, Lymph # (Auto) 2.0, Reynolds # (Auto) 0.6, Eos # (Auto) 0.2, Baso # (Auto) 0.1 05/16/21 22:55: Sodium 140, Potassium 4.0, Chloride 101, Carbon Dioxide 33 H, Anion Gap 10.0, BUN 22 H, Creatinine 1.20, Estimated Creat Clear 109, Estimated GFR 62, Est GFR ( Amer) 75, Glucose 113 H, Calcium 9.8, Troponin I < 0.01 Result diagrams: 05/16/21 22:55 05/16/21 22:55 Orders (Tests/Meds): ED MEDICATIONS Discontinued Medications Generic Name Dose Route Start Last Admin Trade Name Jhonny PRN Reason Stop Dose Admin Aspirin 243 mg 05/16/21 22:58 05/16/21 23:02 Aspirin 81mg Chewable Tablet PO 05/16/21 22:59 243 mg ONCE ONE Administration Nitroglycerin 1 gm 05/16/21 22:58 05/16/21 23:02 Nitroglycerin 1 Gm Ointment TD 05/16/21 22:59 1 gm ONCE ONE Administration ORDERS Category Date Time Status XR chest portable Stat Exams 05/16/21 22:58 Taken Troponin I Q3H Lab 05/17/21 02:00 Ordered Troponin I Q3H Lab 05/17/21 05:00 Ordered - Radiology Data #1 Image(s): Chest Image Reviewed: Yes I reviewed the patient's radiology image Preliminary Findings: Abnormal (cm) - ECG Data Tracing #1 Normal Sinus Rhythm: Yes Ischemic changes: non-specific ST-T wave changes - Physician Consults Physician Consulted: mayda Reason -: Admission Medical Decision Narrative: has unstable angina with abn prev heart cath Chest Pain HPI - General Chief Complaint: Chest Pain Stated Complaint: chest pain Time Seen by Provider: 05/16/21 23:00 Mode of Arrival: Ambulatory Source of Information: Patient, Medical Record Limitations: No Limitations Description of Symptoms (Recalled from ER Triage Doc. by RN): PT advises he started having sharp chest pains approx. 30-45 mins [employer] and had left hand tingling. Denies pain radiating anywhere else. Advises he took a nitro approx 15 mins [employer] and had some relief - History of Present Illness HPI narrative: episodes of ant chest pain about every 2-3 days but longer episode tonight partially relieved with ntg - had abn cath in
[2021-05-16 23:30] VITALS: BP 120/76; PULSE 70; RESP 19; O2SAT 97
[2021-05-16 23:45] VITALS: PULSE 67; RESP 15; O2SAT 95
[2021-05-16 23:50] LABS: Blood Urea Nitrogen 22 mg/dl (9-20); Calcium 9.8 mg/dl (8.4-10.2); Carbon Dioxide 33 mmol/L (22.0-30.0); Chloride 101 mmol/L (98-107); Creatinine Clearance Estimated 109 mL/min (50-200); Estimated Glomerular Filt Rate 62 ml/min (>60); GFR (African American) 75 ML/MIN (>60); Glucose 113 mg/dl (74-100); Sodium 140 mmol/L (136-145)
[2021-05-17] VITALS (28 sets, daily range): BP systolic 90–139; BP diastolic 62–88; PULSE 65–87; RESP 13–21; TEMP 36.4–37.2; O2SAT 92–98; BMI 35.1
--- NOTE | 2021-05-17 | IR_ITS ---
APPROVED REPORT Patient Location: Inpatient PROCEDURES Left heart catheterization Left ventriculogram Selective coronary angiogram FFR to the dominant right coronary FFR to the LAD INDICATION Coronary artery disease, Recalcitrant angina pectoris, Informed consent was obtained prior to the procedure. COMPLICATIONS NONE Estimated Blood Loss: LESS THAN 10 ML TECHNIQUE One percent lidocaine used to anesthetize the right anterior aspect of the wrist. The right radial artery was accessed via the Seldinger technique. A 6 Welsh sheath was placed in the right radial artery. 2.5 mg of verapamil, 800 mcg of nitroglycerin, 1mg Lidocaine and 5000 U Heparin were given through the arterial sheath. The Ullinkpa catheter was also used to perform left heart catheterization, left ventriculogram and selective coronary angiogram. At the end the diagnostic angiogram therapeutic heparin was administered giving a therapeutic ACT. Guide catheter was placed in the right coronary artery and a Choice PT extra-support wire was placed distally. An FFR nevus catheter was equalized in the aorta and then advanced distally where adenosine was infused per protocol. The FFR index dropped to 0.90. This did not meet hemodynamic significance therefore the apparatus was removed. PIOTR-3 flow was present before and after the procedure. The procedure was repeated involving the LAD. The FFR index dropped to 0.85 in the LAD. This did not meet hemodynamic significance therefore the apparatus was removed. PIOTR-3 flow was present before and after the procedure. At the end the procedure the sheath was removed good hemostasis was achieved using TR banding patient was transferred to the postop putting in stable condition ANGIOGRAPHIC RESULTS The left main artery Normal The left anterior descending artery Has a stent in the proximal segment which is widely patent however the stent is significantly undersized by angiographic criteria. This looks like a 2.75 possibly 3 mm stent and a 4 mm vessel. The stent is without in-stent restenosis. The remaining vessel is widely patent with minimal 10% luminal irregularities. All diagonal arteries are patent The circumflex artery Nondominant and proximally patent. The second obtuse marginal artery is occluded in its ostial segment throughout its mid segment and has scant left to left collaterals from the first obtuse marginal artery The right coronary artery Is a large dominant vessel and has a stent in the proximal to mid segment which is widely patent with minimal in-stent restenosis. This appears to be a 3 mm stent and a 4.5 mm vessel. It has good proximal and distal transitioning. The remaining vessel is widely patent The [place] ventriculogram reveals Normal 65% The left ventricular end-diastolic pressure 30 mmHg IMPRESSION Coronary disease as described above FFR index of 0.9 involving the dominant right coronary FFR index of 0.85 involving the LAD Normal ejection fraction Severely elevated LVEDP which is almost certainly the etiology for patient's angina pectoris PLAN 1. Continue with medical management with specific attention to decrease LVEDP through salt and fluid restriction combined with loop diuretics 2. At this point there is no indication to upsize the stents in the proximal LAD or proximal to mid dominant right coronary artery. Although they are angiographically undersized they do not appear to be creating any type of a hemodynamic consequence which warrants revascularization 3. Continue aggressive risk factor modification 4. Maximize antianginal medications Electronically signed by : Joshua Mcdonald MD 05/17/2021 12:44:59
[2021-05-17 00:04] LABS: Troponin I < 0.01 ng/ml (0.00-0.034)
--- NOTE | 2021-05-17 00:37 | PC.NURSE ---
PATIENT ADMITTED 210.
[2021-05-17 00:48] LABS: Coronavirus 19, PCR Not Detected (NotDetected); Influenza A, PCR Not Detected (NotDetected); Influenza B, PCR Not Detected (NotDetected)
--- NOTE | 2021-05-17 01:47 | PC.NURSE ---
patient up to floor via wheelchair @ this time.
[2021-05-17 02:08] LABS: Troponin I < 0.01 ng/ml (0.00-0.034)
[2021-05-17 05:40] LABS: Basophils # 0.1 K/mm3 (0-0.2); Basophils % 0.7 % (0.1-2.0); Eosinophils # 0.2 K/mm3 (0.0-0.4); Eosinophils % 1.9 % (0.1-12.0); Hematocrit 37.7 % (42.0-52.0); Lymphocytes # 2.3 K/mm3 (0.7-4.5); Lymphocytes % 22.9 % (10-50); Mean Corpuscular HGB Conc 33.3 g/dL (31.8-35.4); Mean Corpuscular Hemoglobin 30.1 pg (27.0-31.2); Mean Corpuscular Volume 90.5 fl (80-94); Mean Platelet Volume 7.5 fl (7.4-10.4); Monocytes # 0.5 K/mm3 (0.1-1.0); Neutrophils % 69.6 % (37.0-80.0); Platelet Count 295 K/mm3 (142-424); Red Blood Count 4.16 M/mm3 (4.60-6.20); White Blood Count 10.1 K/mm3 (4.8-10.8)
[2021-05-17 05:41] LABS: Chloride 104 mmol/L (98-107); Sodium 139 mmol/L (136-145)
[2021-05-17 05:44] LABS: Blood Urea Nitrogen 24 mg/dl (9-20); Carbon Dioxide 29 mmol/L (22.0-30.0); Cholesterol 108 mg/dl (140-200); Creatinine Clearance Estimated 119 mL/min (50-200); Estimated Glomerular Filt Rate 68 ml/min (>60); GFR (African American) 83 ML/MIN (>60); Glucose 99 mg/dl (74-100); Triglycerides 64 mg/dl (30-150); VLDL Cholesterol 13 mg/dL (0-40)
--- NOTE | 2021-05-17 05:44 | PC.NURSE ---
Made bed. Brought up from ER.
[2021-05-17 05:45] LABS: Calcium 8.7 mg/dl (8.4-10.2); Chol/HDL Ratio 3.4 (1-3.5); HDL Cholesterol 32 mg/dl (40-60); Magnesium 1.9 mg/dl (1.6-2.3)
[2021-05-17 05:52] LABS: Hemoglobin 12.6 g/dL (14.1-18.0)
[2021-05-17 05:55] LABS: Direct LDL Cholesterol 58.64 mg/dL (100-129)
[2021-05-17 06:12] LABS: Troponin I < 0.01 ng/ml (0.00-0.034)
--- NOTE | 2021-05-17 07:17 | HMH.HP ---
*Admission Date: 05/17/21 *Chief complaint: chest pain *History of present illness: Mr. Vera is a 60-year-old male who presented to the emergency room with nonradiating chest pain. Was pressure-like in the middle of his chest/substernal. Has been going on for several months. Episodes will last a few minutes and then resolve spontaneously. Episode yesterday began approximately 45 minutes before coming to the ER. After the pain began he took a nitroglycerin tablet at home, achieved some improvement but not complete resolution. Upon arrival to the ER, work-up was initiated and nitroglycerin paste was placed on his chest. This resolved his chest pain and he has no more at this time. Complains of some shortness of breath that is at baseline, longtime smoker who continues to smoke however. See cardiology note for full details of previous heart cath, stent placement, recommendations for hypertension management. Last heart cath performed showed stents that were too narrow/small for his vessels. Concerned that if optimization of his blood pressure did not improve his chest pain he would need a repeat heart cath. This morning he denies any nausea, vomiting, chest pain. No confusion or headache. Overall feels better. No events on telemetry overnight. Admitted to medicine for further management and cardiology consult placed. [facility] History I have reviewed the patient's past medical history: Yes Medical History: Reports:: Asthma, Cancer (bladder), Congestive Heart Failure, Chronic Obstructive Pulmonary Disease (COPD), Coronary Artery Disease, Gastroesophageal Reflux Disease(GERD), Hiatal Hernia, Hyperlipidemia, Hypertension, Lung Disease, Myocardial Infarction Denies:: Diabetes Mellitus Type 1, Diabetes Mellitus Type 2, Internal Pacemaker, MRSA, Seizures *Have you ever received a pneumonia vaccine?: Yes *Have you received a flu vaccine this season?: Yes Other Medical History: Reports: Other. Denies: Blood Transfusion Reaction Other Surgeries: Yes: No Previous Surgery, Cancer Surgery, Cardiac Catheterization, Colonoscopy, Coronary Stent, EGD, Hernia Repair, Other. No: Pacemaker Amputation: No Fractures: Yes - *Social History Smoking Status: Current every day smoker Tobacco Type: cigarettes # Packs/Day (cigarettes): 1 #Yrs smoked (if former smoker): 45 Alcohol Intake: former Alcohol Intake Frequency:: other Substance Use Type: denies use *Occupational Status:: disabled Housing: house Household Members: spouse *Travel in the last 8 weeks: None Family Hx:: Cancer, Heart Attack Review of Systems - Review of Systems Review of systems:: pertinent systems reviewed and negative unless documented below (14 point review of systems performed, pertinent positives and negatives as per HPI) - *Neurologic Denies seizure-like activity Meds Home Medications Medication Instructions Recorded Confirmed Type aspirin 81 mg tablet,delayed 81 mg PO DAILY 07/25/17 05/17/21 History release Pantoprazole Sodium [Protonix 40mg 40 mg PO DAILY 08/14/17 05/17/21 History tablet] albuterol sulfate 90 mcg/actuation 2 puff INHALATION Q4-6H PRN 06/17/18 05/17/21 History aerosol inhaler umeclidinium 62.5 mcg-vilanterol 1 inh INHALATION Q24H 06/17/18 05/17/21 History 25 mcg/actuation powdr for inhalation atorvastatin 80 mg tablet 80 mg PO HS tab 09/29/20 05/17/21 History meclizine 25 mg tablet 25 mg PO TIDP PRN tab 09/29/20 05/17/21 History nitroglycerin 0.4 mg sublingual 0.4 mg SUBLINGUAL Q5MINP PRN tab 09/29/20 05/17/21 History tablet Finasteride [Proscar 5mg Tablet] 5 mg PO DAILY 05/17/21 05/17/21 History Furosemide [Furosemide 80mg Tab] 80 mg PO DAILY 05/17/21 05/17/21 History Isosorbide Mononitrate [Isosorbide 30 mg PO DAILY 05/17/21 05/17/21 History Mononitrate ER] Metoprolol Tartrate [Lopressor 50 mg PO BID 05/17/21 05/17/21 History 50mg tablet] Spironolactone [Aldactone 50mg 50 mg PO DAILY 05/17/21 05/17/21 History Ta
--- NOTE | 2021-05-17 07:37 | HMH.CNCARD ---
History of Present Illness Consult date: 05/17/21 Requesting physician: Tramaine Moreno Consult reason: chest pain Chief complaint: unstable angina History of present illness: 60-year-old male presented to the ED with nonradiating chest pressure. Patient states for the past few months he has been having episodes of chest pressure only lasting for a few minutes. Patient states 30 to 45 minutes prior to arrival to the ED, patient began experiencing chest pressure that would not be relieved with nitro. Patient states the chest pressure continues to come and go, only lasting for a few seconds. Patient states after nitro glycerin patch was placed, the chest pain has been resolved. Patient denies chest pain, tightness or pressure at this time. Patient complains of shortness of breath but states he does continue to smoke. Patient does have history of COPD. Patient complains of palpitations at times especially with exertion. Resolves with rest. Patient does have some swelling of the lower extremity. Patient does have history of elevated LVEDP in which he takes Lasix and Aldactone on a daily basis. Patient does have history of coronary artery disease. Last heart catheterization was in September 2020 which revealed patent stents in the LAD and mid dominant right coronary are already which do not have in-stent restenosis however both stents are significantly undersized. Moderate pulmonary hypertension secondary to left-sided diastolic dysfunction. If his symptoms significantly improve and the angina resolves then the presumed diagnosis would be diastolic dysfunction. If after diuresis his symptoms persist, he should be brought back to the [facility] in a euvolemic state and then have the LAD and right coronary artery subjected to FFR interrogation. Given the occluded circumflex artery and undersized LAD and right coronary artery stents I do not believe a Myoview would be an appropriate test as the risk of balanced ischemia would remain high. Despite patient being on diuretics, patient does continue to have chest pressure. Patient does have history of hyperlipidemia. Patient is on statin therapy. History of carotid artery stenosis. Patient noted to have 20% stenosis of the R ICA and left ICA noted with 20 to 49% stenosis. Serial troponins are negative x3. Chest x-ray revealed subtle interstitial haziness could reflect interstitial pneumonia. Echocardiogram from 09/14/2020 revealed EF 55% with no regional wall motion abnormality with grade 1 diastolic dysfunction. Trace of MR and TR noted. Vital signs stable. teletypesetter monitor reveals sinus rhythm with no ST or T wave changes. Echo (09/15)Conclusion 1. Mildly enlarged left atrium, normal left ventricular size, mild concentric left ventricular hypertrophy, visually estimated ejection fraction 55% with no regional wall motion abnormality, grade 1 diastolic dysfunction seen without tissue Doppler evidence of raise left atrial pressure. 2. Mildly enlarged right ventricle with normal contractility. 3. Trace mitral and tricuspid regurgitation. 4. No significant pericardial effusion noted. Inferior vena cava is not well visualized. (10/15)C:ANGIOGRAPHIC RESULTS The left main artery Normal The left anterior descending artery Has a stent in the proximal segment which is widely patent with no angiographic evidence of in-stent restenosis however significantly undersized by at least 1.5 millimeters in diameter. Nevertheless there still appears to be appropriate flow down the LAD The circumflex artery Is a nondominant vessel. The second obtuse marginal artery is occluded and fills scantly via left to left collaterals The right coronary artery Is a dominant vessel and has a stent in the mid segment which is widely patent free of in-stent restenosis however the stent is significantly undersized by at least 1.5 to 2 mm in diameter The [place] ventriculogram reveals Normal 65% The left ventricular end-diastolic pressure 3
--- NOTE | 2021-05-17 08:00 | CA_ITS ---
APPROVED REPORT EXAM: Comprehensive 2D, Doppler, and color-flow Echocardiogram Change Of Address Clerk: Celi Garay CRT Ht: 6 ft 0 in Wt: 260lbs BSA: 2.38 BP: 171/95 mmHg Indications: Chest Pain, Congestive Heart Failure, CAD, old MA, stents x 4 2D Dimensions LVOT 2.07 cm (M/F) 1.5-2.5 LA Volume 25.80 mL LA Volume Index 10.80 mL/m2 (M/F) 16-34 M-Mode Dimensions RVDd 3.19 cm (0.9-2.6) LA Diam 3.66 cm (1.9-4.0) LVDd 5.71 cm (3.5-5.7) Ao Diam 4.77 cm (2.0-3.7) LVDs 2.95 cm (3.5-5.7) IVSd 1.21 cm (0.6-1.1) PWd 0.97 cm (0.6-1.1) EF (Teich) 79.10% FS 48.30% EDV (Teich) 160.70 mL TAPSE 2.12 (<1.7) ESV (Teich) 33.60 mL LV Diastology E Decel Time 217.00 (160-240 msec) E/A Ratio 0.78 MED E' 3.70 (< 7 cm/sec) MED A' 9.20 cm/s E'/MED E' Ratio 15.76 (>14) LAT E' 5.80 (<10 cm/sec) LAT A' 8.80 cm/s E/LAT E' Ratio 10.05 (>14) Aortic Valve AO Peak GR. 5.10 mmHg Mitral Valve MV A Velocity 75.00 (40-130 cm/s) E/A Ratio 0.78 MV Decel. Time 217.00 (160-240 ms) Pulmonary Valve PV Peak Velocity 88.00 (50-150 cm/s) Tricuspid Valve TR P. Velocity 240.00 cm/s RAP Estimate 10.00 mmHg RVSP 33.10 mmHg Left Ventricle Left atrium is mildly enlarged, left ventricle is normal size, mild concentric left ventricular hypertrophy, visually estimated ejection fraction 55%, there is mild mid septal wall hypokinesis. Grade 1 diastolic dysfunction seen without tissue Doppler evidence of raise left atrial pressure. Right Ventricle Right atrium and right ventricle mildly enlarged with normal contractility. Aortic Valve Aortic valve is minimally thickened and fibrosed, there is no aortic stenosis or aortic insufficiency. Mitral Valve Mitral valve is grossly normal, there is trace mitral regurgitation. Tricuspid Valve Tricuspid valve grossly normal, there is trace tricuspid regurgitation, tricuspid regurgitation jet velocity is inadequate for calculation of the right ventricular systolic pressure. Pulmonic Valve Pulmonic valve is poorly visualized. Great Vessels Aortic root is normal size. Inferior vena cava is poorly visualized. Pericardium No significant pericardial effusion noted. Conclusion 1. Mild biatrial enlargement, normal left ventricular size, mild concentric left ventricular hypertrophy, visually estimated ejection fraction 55% with segmental wall motion abnormality described above, grade 1 diastolic dysfunction seen without tissue Doppler evidence of raise left atrial pressure. 2. Mildly enlarged right ventricle with normal contractility. 3. Trace mitral and tricuspid regurgitation. 4. No significant pericardial effusion noted. 5. Inferior vena cava is poorly visualized. Electronically signed by : Olegario Stovall MD 05/17/2021 19:33:55
--- NOTE | 2021-05-17 08:38 | HMH.PHAVTE ---
[facility] Pharmacy VTE Monitoring - Patient Demographics Admission date: 05/17/21 Report Date: 05/17/21 Time: 08:38 Allergies/Adverse Reactions: Patient Allergies clindamycin [CLINDAMYCIN] Allergy (Unknown, Verified 04/29/21 07:38) Penicillins [PENICILLINS] Allergy (Unknown, Verified 04/29/21 07:38) confusion, high fever Height: 1.83 m Weight: 117.707 kg Patient Problems: Current Active Problems Unstable angina pectoris (Acute) Obesity (BMI 30-39.9) (Acute) Carotid artery stenosis (Chronic) Elevated left ventricular end-diastolic pressure (LVEDP) (Acute) TARIK (obstructive sleep apnea) (Chronic) Pulmonary HTN (Acute) Dyspnea (Acute) COPD (chronic obstructive pulmonary disease) (Acute) Tobacco dependence syndrome (Acute) Abnormal EKG (Acute) HLD (hyperlipidemia) (Chronic) HTN (hypertension) (Chronic) CAD (coronary artery disease) (Chronic) Edema (Chronic) - VTE Risk Labs: VTE Related Lab Results Hgb 12.6 g/dL (14.1-18.0) L D 05/17/21 05:28 Hct 37.7 % (42.0-52.0) L 05/17/21 05:28 Plt Count 295 K/mm3 (142-424) 05/17/21 05:28 BUN 24 mg/dl (9-20) H 05/17/21 05:28 Creatinine 1.10 mg/dl (0.66-1.25) 05/17/21 05:28 Estimated Creat Clear 119 mL/min (50-200) 05/17/21 05:28 Was VTE Risk Assessment Performed: Yes VTE Score: 5 VTE Risk Level: Low Risk Clinical Trial Participant: No - Prophylaxis VTE Prophylaxis Ordered?: Yes Types of VTE Prophylaxis: TEDS Knee High
--- NOTE | 2021-05-17 08:51 | HMH.PHAINT ---
MEDICATION RECONCILIATION COMPLETE USING LIST FROM RECENT MD OFFICE VISIT AND EXTERNAL PHARMACY FILL HISTORY.
--- NOTE | 2021-05-17 16:16 | HMH.DCSUM ---
General - General Admission date:: 05/17/21 Discharge date: 05/17/21 HPI HPI: Mr. Vera is a 60-year-old male who presented to the emergency room with nonradiating chest pain. Was pressure-like in the middle of his chest/substernal. Has been going on for several months. Episodes will last a few minutes and then resolve spontaneously. Episode yesterday began approximately 45 minutes before coming to the ER. After the pain began he took a nitroglycerin tablet at home, achieved some improvement but not complete resolution. Upon arrival to the ER, work-up was initiated and nitroglycerin paste was placed on his chest. This resolved his chest pain and he has no more at this time. Complains of some shortness of breath that is at baseline, longtime smoker who continues to smoke however. See cardiology note for full details of previous heart cath, stent placement, recommendations for hypertension management. Last heart cath performed showed stents that were too narrow/small for his vessels. Concerned that if optimization of his blood pressure did not improve his chest pain he would need a repeat heart cath. This morning he denies any nausea, vomiting, chest pain. No confusion or headache. Overall feels better. No events on telemetry overnight. Admitted to medicine for further management and cardiology consult placed. Hospital Course Hospital Course: 60-year-old male admitted for chest pain/unstable angina. Cardiology consulted. Given risk factors and previous cath results, patient taken for left heart catheterization. Following findings and impression: LHC:IMPRESSION FFR index of 0.9 involving the dominant right coronary FFR index of 0.85 involving the LAD Normal ejection fraction Severely elevated LVEDP which is almost certainly the etiology for patient's angina pectoris PLAN 1. Continue with medical management with specific attention to decrease LVEDP through salt and fluid restriction combined with loop diuretics 2. At this point there is no indication to upsize the stents in the proximal LAD or proximal to mid dominant right coronary artery. Although they are angiographically undersized they do not appear to be creating any type of a hemodynamic consequence which warrants revascularization 3. Continue aggressive risk factor modification 4. Maximize antianginal medications Pt was educated on decreasing salt and fluid intake due to diastolic dysfunction. Increase Aldactone to 50mg BID and Lasix 40mg BID due to diastolic dysfunction. Increase Imdur to 60mg daily due to chest pain. Patient is to follow-up with cardiology in 1 week or sooner if signs and symptoms develop or persist. Has remained medically stable since left heart cath. Meeting criteria for discharge home. Will discharge home with close follow-up as above. Objective Vital signs: Temp Pulse Resp BP Pulse Ox 97.6 F 78 20 90/62 L 92 L 05/17/21 08:00 05/17/21 12:40 05/17/21 12:40 05/17/21 12:40 05/17/21 12:40 Narrative: - Constitutional no acute distress, obese - *Routine HEENT Exam Head: Present: normocephalic Eye: Present: EOMI, PERRL ENT: Present: mucous membranes moist. Absent: dentition normal - *Routine Neck Exam Present: supple. Absent: lymphadenopathy - *Routine Respiratory Exam Present: CTA bilaterally - *Routine Cardiovascular Exam Present: RRR - *Routine Abdominal Exam Present: soft, normoactive bowel sounds. Absent: tenderness - *Routine Extremities Exam Present: edema (1+ to knee). Absent: cyanosis, clubbing - *Routine Skin Exam Present: warm. Absent: rash - *Routine Neurological Exam Present: alert, oriented X3 Results Labs on day of discharge: Labs from last 24 hours 05/17/21 05/17/21 05/17/21 05:28 05:28 05:28 WBC 10.1 RBC 4.16 L Hgb 12.6 L D Hct 37.7 L MCV 90.5 MCH 30.1 MCHC 33.3 RDW 14.0 Plt Count 295 MPV 7.5 Neut % (Auto) 69.6 Ly
== END 2021-05-17 18:05 | disposition home or self-care (01) ==
LOC: ER 23:03 → 2ND 05-17 00:40
PROVIDERS: Internal Medicine; Admitting Provider Internal Medicine Adolescent Medicine; Emergency Provider Emergency Medicine; PCP Internal Medicine Adolescent Medicine; Visit Provider Internal Medicine Adolescent Medicine
DX: I25.110 Atherosclerotic heart disease of native coronary artery with unstable angina pectoris (principal); I65.21 Occlusion and stenosis of right carotid artery; I11.0 Hypertensive heart disease with heart failure; I50.9 Heart failure, unspecified; J44.9 Chronic obstructive pulmonary disease, unspecified; F17.210 Nicotine dependence, cigarettes, uncomplicated; I25.2 Old myocardial infarction; Z79.899 Other long term (current) drug therapy; I27.20 Pulmonary hypertension, unspecified; E78.2 Mixed hyperlipidemia; Z20.822 Contact with and (suspected) exposure to COVID-19
CPT/HCPCS: G0378; 71045; 80048; 80061; 83735; 84484; 85025; 93005; 93306; 93458; 93571; 93572; 99152; 99153; 99284; C1725; C1760; C1769; C9803; J0153; J1644; Q9967; U0003; U0005

== ENCOUNTER → 2021-05-27 09:13 | Outpatient (CLI) | payer MEDICARE, OTHER, SELFPAY ==
--- NOTE | 2021-05-27 09:14 | CA_ITS ---
APPROVED REPORT Color Blender: Anabell Eisenberg RVT Laterality: Bilateral Study Quality: Good Indications: RAMA Risk Factors Hypertension: Smoking Doppler Spectral Velocity Analysis ECA (R) 125.20/25.00 cm/s ECA (L) 73.80/19.20 cm/s dICA (R) 100.30/35.20 cm/s dICA (L) 114.40/39.60 cm/s Messi (R) 104.00/32.90 cm/s Messi (L) 87.70/36.40 cm/s pICA (R) 26.20/10.50 cm/s pICA (L) 104.80/17.10 cm/s dCCA (R) 37.40/11.80 cm/s dCCA (L) 102.70/23.50 cm/s pCCA (R) 68.40/15.00 cm/s pCCA (L) 129.40/28.90 cm/s Vert (R) 37.40/12.70 cm/s Vert (L) 47.00/17.10 cm/s ICA/CCA 2.78 ICA/CCA 1.11 Findings Study suggests less than 20% stenosis of the right internal cartoid artery. Study suggests 20-49% stenosis of the left internal cartoid artery. Antegrade flow seen bilateral vertebral arteries. Conclusion Study suggests less than 20% stenosis of the right internal cartoid artery. Study suggests 20-49% stenosis of the left internal cartoid artery. Antegrade flow seen bilateral vertebral arteries. Electronically signed by : Theodore Jacobson MD 05/27/2021 14:44:08
== END ==
PROVIDERS: PCP Internal Medicine Adolescent Medicine; Visit Provider Urology
DX: I65.23 Occlusion and stenosis of bilateral carotid arteries (principal)
CPT/HCPCS: 93880

== ENCOUNTER → 2021-07-19 07:54 | Outpatient (CLI) | payer MEDICARE, OTHER, SELFPAY ==
--- NOTE | 2021-07-19 07:57 | CT_ITS ---
FINAL REPORT CLINICAL HISTORY: H/O NICOTINE DEPENDENCE, CURRENT SMOKER 1PPD X46 YEARS COMPARISON: July 30, 2019 and February 25, 2020 FINDINGS: Low-Dose Chest CT CTDI vol (mGy): 2.90 DLP (mGy-cm): 100.29 Axial images were obtained from the lung apex to the mid abdomen by computed tomography. Low-dose protocol was utilized. FINDINGS: CHEST: There is no axillary adenopathy. There is no hilar or mediastinal adenopathy. The heart is proper size. There is no pericardial or pleural effusion. Limited images of the upper abdomen are unremarkable. Lung window images demonstrate a 1.3 x 1.1 cm mass at the right apex which is considerably larger than previous. This is well seen on images 55 of series 601. And image 17 of series 3. This is highly concerning for neoplasia. There is a stable appearing 7 mm medial right upper lobe nodule seen on image 23 of series 3. There is a stable 4 mm nodule in the inferior right upper lobe on image 43 of series 3. IMPRESSION: Lung RADS category 4B. Marked increase in size of irregular right upper lobe lung mass which is highly concerning for bronchogenic carcinoma. A PET-CT and/or needle sampling is recommended. Note is made that this may be a challenging transthoracic needle biopsy. Reviewed, Interpreted and Dictated by Kota Alexander MD Transcribed by Cielo Powell Authenticated by Kota Alexander MD on 07/19/2021 10:14:30 AM [facility]
== END ==
PROVIDERS: PCP Internal Medicine Adolescent Medicine; Visit Provider Internal Medicine Adolescent Medicine
DX: Z87.891 Personal history of nicotine dependence (principal); Z12.2 Encounter for screening for malignant neoplasm of respiratory organs
CPT/HCPCS: 71271

== ENCOUNTER → 2021-09-30 09:35 | Outpatient (CLI) | payer MEDICARE, OTHER, SELFPAY ==
[2021-09-30 10:46] VITALS: BP 108/83; PULSE 74; RESP 18; O2SAT 97
[2021-09-30 10:50] VITALS: PULSE 80
== END ==
PROVIDERS: PCP Internal Medicine Adolescent Medicine; Visit Provider Internal Medicine Pulmonary Disease
DX: R06.09 Other forms of dyspnea (principal)
CPT/HCPCS: 94060; 94618; 94726; 94729